=== PATIENT | female | born 1995 | race Two or more races ===

== ENCOUNTER 2023-06-21 20:54 | Emergency (ER) | payer OTHER ==
[~2023-06-21] VITALS: Ht 172.7 cm; Wt 73.5 kg
[2023-06-21 23:13] LABS: HEMATOCRIT 36.8 % (36.0-45.00); HEMOGLOBIN 12.5 g/dL (12.0-15.00); MEAN CELL VOLUME 84.9 fL (80.00-100.00); MEAN CORPUSCULAR HEMOGLOBIN 28.9 pg (27.00-32.0); PLATELET COUNT 217 K/uL (150-450); RED BLOOD COUNT 4.34 M/uL (4.00-6.00); RED CELL DISTRIBUTION WIDTH 13.1 % (11.5-14.5)
[2023-06-21 23:43] LABS: ALBUMIN 3.7 gm/dL (3.4-5.0); BILIRUBIN TOTAL 0.54 mg/dL (0.3-1.2); CALCIUM 8.9 mg/dL (8.5-10.1); CREATININE SERUM 0.64 mg/dL (0.55-1.02); GFR 112.17; GLOBULINA 3.9 G/DL (2.4-3.5); POTASSIUM 3.94 mEq/L (3.5-5.1); TOTAL PROTEIN 7.6 gm/dL (6.4-8.2)
[2023-06-21] MEDS ORDERED: PEPCID AC20 MG PO (23:54)
[2023-06-21] MEDS ORDERED: ONDANSETRON ODT8 MG PO (23:54)
== END 2023-06-22 00:19 | disposition home or self-care (01) ==
LOC: ER 20:54
PROVIDERS: General Practice
DX: R11.2 Nausea with vomiting, unspecified (principal); R11.10 Vomiting, unspecified
CPT/HCPCS: 36415; 96365; 96366; 99282; J2405; J3490 ×2; J7030